=== PATIENT | male | born 1960 | race African-American/Black ===

== ENCOUNTER 2018-05-30 12:33 | Emergency (ER) | payer SELFPAY ==
[~2018-05-30] VITALS: Ht 168.9 cm; Wt 74.0 kg
[2018-05-30] MEDS ORDERED: IV NORMAL SALINE 1,000ML 1,000 ML IV SCH (12:48)
[2018-05-30 13:22] LABS: BASO % 0 % (0-3); EOS # 0.1 x10^3/uL (0.0-0.7); EOS % 0 % (0-3); HEMATOCRIT 38.1 % (39.0-53.0); HEMOGLOBIN 12.4 g/dL (13.0-17.5); LYMPH # 1.2 x10^3/uL (1.0-4.8); LYMPH % 10 % (24-48); MEAN CORPUSCULAR HEMOGLOBIN 28 pg (25-35); MEAN CORPUSCULAR HGB CONC 33 g/dL (31-37); MEAN CORPUSCULAR VOLUME 86 fL (79-100); MONO # 0.9 x10^3/uL (0.0-1.1); MONO % 8 % (0-9); NEUT # 9.6 x10^3uL (1.8-7.7); NEUT % 81 % (31-73); PLATELET COUNT 248 x10^3/uL (140-400); RED BLOOD COUNT 4.43 x10^6/uL (4.30-5.70); RED CELL DISTRIBUTION WIDTH 14.4 % (11.5-14.5); WHITE BLOOD COUNT 11.8 x10^3/uL (4.0-11.0)
[2018-05-30 13:29] LABS: MONONUCLEOSIS PATIENT NEGATIVE (NEGATIVE)
[2018-05-30] MEDS ORDERED: IBUPROFEN 400 MG TABLET. PO ONE (13:30)
[2018-05-30 13:31] LABS: ALBUMIN 2.8 g/dL (3.4-5.0); ALBUMIN/GLOBULIN RATIO 0.7 (1.0-1.7); CREATININE 1.2 mg/dL (0.7-1.3); GFR 62.2; POTASSIUM 4.5 mmol/L (3.5-5.1); TOTAL BILIRUBIN 0.2 mg/dL (0.2-1.0)
--- NOTE | 2018-05-30 13:35 | RAD ---
EXAM: Chest, 2 views. HISTORY: Cough and fever. COMPARISON: None. FINDINGS: 2 views of the chest are obtained. There is no infiltrate, pleural effusion or pneumothorax. The heart is normal in size. There are small nodular opacity overlying the left lower thorax, possibly due to overlying osseous and pulmonary vessels shadows. IMPRESSION: 1. No acute pulmonary finding. 2. Small nodular opacity overlying the left lower thorax, possibly artifactual. Short-term radiographic follow-up is recommended to exclude a nodule in this location. Electronically signed by: Maribel Mooney MD (05/30/2018 1:30 PM) [place] [id number]
[2018-05-30 13:45] LABS: INFLUENZA A PATIENT NEGATIVE (NEGATIVE); INFLUENZA B PATIENT NEGATIVE (NEGATIVE)
--- NOTE | 2018-05-30 13:54 | PHYS DOC ---
Past History Past Medical History: Depression, HIV Past Surgical History: Other Alcohol Use: Occasionally Additional Alcohol Information: 4 beers/weeks Drug Use: Cocaine, Methamphetamine Adult General Chief Complaint Chief Complaint: multiple complaining HPI HPI Patient is a 57 year old male patient with history of HIV brought in by EMS because of multiple complaints including abdominal pain and fever and head injury. Patient states he hit his head accidentally 5 days ago and seen at [facility] with unremarkable CT of his head still has headache. Patient also complaining of hurting all over and having subjective fever for the last 4 days without cough, congestion, sore throat, vomiting and diarrhea, urinary symptom, sick contact. Patient states he has left inguinal hernia for 2 years and recently he gets more pain after eating with bulging in left inguinal area that resolves after supine position. He states he has plan to have surgery at [facility] but he is concern for problem in his inguinal area and wants ultrasound. Patient was admitted to use illegal drugs and states he had methamphetamine 1 week ago and cocaine yesterday. Patient states he has had history of HIV since 2011 and for the last 2 weeks did not take any medication. Review of Systems Review of Systems Constitutional: Reports fever and chills Eyes: Denies change in visual acuity, redness, or eye pain [] HENT: Denies nasal congestion or sore throat [] Respiratory: Denies cough or shortness of breath [] Cardiovascular: No additional information not addressed in HPI [] GI: Reports abdominal pain, denies nausea, vomiting, bloody stools or diarrhea [ ] : Denies dysuria or hematuria [] Musculoskeletal: Denies back pain or joint pain [] Integument: Denies rash or skin lesions [] Neurologic: Reports headache, denies focal weakness or sensory changes [] Endocrine: Denies polyuria or polydipsia [] All other systems were reviewed and found to be within normal limits, except as documented in this note. Current Medications Current Medications Current Medications Medications (Trade) Dose Ordered Sig/Liset Start Time Stop Time Status Last Admin Dose Admin Ceftriaxone Sodium 1 gm/ Sodium Chloride 50 ml @ 100 mls/hr 1X ONCE 05/30/18 14:00 05/30/18 14:29 UNV Ibuprofen (Motrin) 800 mg 1X ONCE 05/30/18 13:30 05/30/18 13:31 DC 05/30/18 13:15 800 MG Sodium Chloride 1,000 ml @ 1,000 mls/hr 1X ONCE 05/30/18 14:00 05/30/18 14:59 UNV Allergies Allergies Allergies Coded Allergies Type Severity Reaction Last Updated Verified No Known Drug Allergies 05/30/18 No Physical Exam Physical Exam Constitutional: Well nourished, mild distress, non-toxic appearance, temperature of 102.9. [] HENT: Normocephalic, atraumatic, bilateral external ears normal, oropharynx dry , no oral exudates, nose normal. [] Eyes: PERRLA, EOMI, conjunctiva normal, no discharge. [] Neck: Normal range of motion, no tenderness, supple, no stridor. [] Cardiovascular: Tachycardia, no murmur [] Lungs & Thorax: Bilateral breath sounds clear to auscultation [] Abdomen: Bowel sounds normal, soft, no tenderness, no masses, no pulsatile masses left inguinal hernia without incarceration or strangulation or palpable mass.] Skin: Warm, dry, no erythema, no rash. [] Back: No tenderness, no CVA tenderness. [] Extremities: No tenderness, no cyanosis, no clubbing, ROM intact, no edema. [] Neurologic: Alert and oriented X 3, normal motor function, normal sensory function, no focal deficits noted. [] Psychologic: Affect anxious, mood normal. [] Current Patient Data Vital Signs Vital Signs Date Time Temp Pulse Resp B/P (MAP) Pulse Ox O2 Delivery O2 Flow Rate FiO2 05/30/18 12:33 102.9 92 20 99 Room Air Lab Results Laboratory Tests Test 05/30/18 13:00 05/30/18 13:15 White Blood Count 11.8 x10^3/uL (4.0-11.0) H Red Blood Count 4.43 x10^6/uL (4.30-5.70) Hemoglobin 12.4 g/dL (13.0-17.5) L Hematocrit 38.1 % (39.0-53.0) L Mean Corpuscular Volume 86 fL (79-100) Mean Corpuscular Hemoglobin 28 pg (25-35) Mean Corpuscular Hemoglobin Concent 33 g/dL (31-37) Red Cell Distribution Width 14.4 % (11.5-14.5) Platelet Count 248 x10^3/uL (140-400) Neutrophils (%) (Auto) 81 % (31-73) H Lymphocytes (%) (Auto) 10 % (24-48) L Monocytes (%) (Auto) 8 % (0-9) Eosinophils (%) (Auto) 0 % (0-3) Basophils (%) (Auto) 0 % (0-3) Neutrophils # (Auto) 9.6 x10^3uL (1.8-7.7) H Lymphocytes # (Auto) 1.2 x10^3/uL (1.0-4.8) Monocytes # (Auto) 0.9 x10^3/uL (0.0-1.1) Eosinophils # (Auto) 0.1 x10^3/uL (0.0-0.7) Basophils # (Auto) 0.0 x10^3/uL (0.0-0.2) Sodium Level 138 mmol/L (136-145) Potassium Level 4.5 mmol/L (3.5-5.1) Chloride Level 101 mmol/L (98-107) Carbon Dioxide Level 29 mmol/L (21-32) Anion Gap 8 (6-14) Blood Urea Nitrogen 11 mg/dL (8-26) Creatinine 1.2 mg/dL (0.7-1.3) Estimated GFR (Cockcroft-Gault) 62.2 BUN/Creatinine Ratio 9 (6-20) Glucose Level 123 mg/dL (70-99) H Lactic Acid Level 1.1 mmol/L (0.4-2.0) Calcium Level 8.0 mg/dL (8.5-10.1) L Total Bilirubin 0.2 mg/dL (0.2-1.0) Aspartate Amino Transferase (AST) 15 U/L (15-37) Alanine Aminotransferase (ALT) 20 U/L (16-63) Alkaline Phosphatase 89 U/L (46-116) Total Protein 7.0 g/dL (6.4-8.2) Albumin 2.8 g/dL (3.4-5.0) L Albumin/Globulin Ratio 0.7 (1.0-1.7) L Heterophil Agglutinins Negative (NEGATIVE) Influenza Type A (Rapid) Negative (NEGATIVE) Influenza Type B (Rapid) Negative (NEGATIVE) EKG EKG [] Radiology/Procedures Radiology/Procedures [address] [place] [address] IMAGING REPORT Signed PATIENT: CECILIA BREWER ACCOUNT: [id number] : 1960 LOCATION: ER AGE: 57 SEX: M EXAM STATUS: REG ER ORD. PHYSICIAN: SAMANTHA MENDOZA MD REASON: fever PROCEDURE: CHEST PA & LATERAL EXAM: Chest, 2 views. HISTORY: Cough and fever. COMPARISON: None. FINDINGS: 2 views of the chest are obtained. There is no infiltrate, pleural effusion or pneumothorax. The heart is normal in size. There are small nodular opacity overlying the left lower thorax, possibly due to overlying osseous and pulmonary vessels shadows. IMPRESSION: 1. No acute pulmonary finding. 2. Small nodular opacity overlying the left lower thorax, possibly artifactual. Short-term radiographic follow-up is recommended to exclude a nodule in this location. Electronically signed by: Maribel Mooney MD (05/30/2018 1:30 PM) [place] [id number] DICTATED AND SIGNED BY: MARIBEL MOONEY MD DATE: 05/30/18 3905 CC: SAMANTHA MENDOZA MD; NON,STAFF ~ Course & Med Decision Making Course & Med Decision Making Pertinent Labs and Imaging studies reviewed. (See chart for details) Evaluation of patient in ER showed 57-year-old male patient with history of HIV with fever of 102.9 without source of infection. Patient treated with IV fluid and antibiotic in ER and felt better. Patient is a patient of [facility] and requested transferred to [place]. accepted transfer to [facility] at 1540. Dragon Disclaimer [facility] Disclaimer This electronic medical record was generated, in whole or in part, using a voice recognition dictation system. Departure Departure: Impression: Primary Impression: Fever of unknown origin Additional Impressions: HIV (human immunodeficiency virus infection) Inguinal hernia Cocaine abuse Tobacco abuse counseling Tobacco abuse Anxiety Disposition: XFER OTHER ([facility] at 1540) Condition: GUARDED Referrals: NON,STAFF (PCP) Critical Care Time Critical care time was 70 minutes exclusive of procedures. Problem Qualifiers SAMANTHA MENDOZA MD May 30, 2018 13:54
[2018-05-30] MEDS ORDERED: IV NORMAL SALINE 1,000ML 1,000 ML IV ONE (14:00)
[2018-05-30 14:05] LABS: AMPHETAMINE/METHAMPHETAMINE NEG (NEG); BARBITURATES NEG (NEG); BENZODIAZEPINES NEG (NEG); CANNABINOIDS NEG (NEG); COCAINE POS (NEG); METHADONE NEG (NEG); OPIATES NEG (NEG); PHENCYCLIDINE NEG (NEG)
[2018-05-30] MEDS ORDERED: IV NORMAL SALINE 50ML 50 ML ONE (14:18)
[2018-05-30] MEDS ORDERED: cefTRIAXone SODIUM 1 GM VIAL IV ONE (14:18)
[2018-05-30 14:23] LABS: BACTERIA,URINE 0 /HPF (0-FEW); BILIRUBIN,URINE NEG (NEG); CLARITY,URINE CLEAR; COLOR,URINE AMBER; GLUCOSE,URINE NEG (NEG); NITRITE,URINE NEG (NEG); RBC,URINE 0 /HPF (0-2); SQUAMOUS EPITHELIAL CELL,UR OCC /LPF; UROBILINOGEN,URINE 4 mg/dL (0.2 mg/dL); WBC,URINE 0 /HPF (0-4)
[2018-05-30 15:59] VITALS: BP 120/71
== END 2018-05-30 16:34 | disposition short-term general hospital (02) ==
LOC: ER 12:33
DX: R50.9 Fever, unspecified (principal); Z21 Asymptomatic human immunodeficiency virus [HIV] infection status; K40.90 Unilateral inguinal hernia, without obstruction or gangrene, not specified as recurrent; F41.9 Anxiety disorder, unspecified; F32.9 Major depressive disorder, single episode, unspecified; F12.10 Cannabis abuse, uncomplicated; F15.10 Other stimulant abuse, uncomplicated; Z72.0 Tobacco use; Z71.6 Tobacco abuse counseling
CPT/HCPCS: 36415; 71046; 80053; 80307; 81001; 83605; 85025; 86308; 87040; 87070; 87186; 87205; 87804; 87880; 96365; 96366; 99285; J0696; J7030